=== PATIENT | male | born 1995 | race Two or more races ===

== ENCOUNTER 2018-03-09 23:03 | Emergency (ER) | payer OTHER, SELFPAY ==
[~2018-03-09] VITALS: Ht 165.1 cm; Wt 70.0 kg
[2018-03-09] MEDS ORDERED: LORazepam 0.5MG TABLET ONE (23:27)
[2018-03-09] MEDS ORDERED: LORazepam 0.5MG TABLET PO ONE (23:30)
[2018-03-10 00:03] VITALS: BP 112/56
== END 2018-03-10 00:11 | disposition home or self-care (01) ==
LOC: ED 23:59
DX: R06.00 Dyspnea, unspecified (principal); F41.1 Generalized anxiety disorder; R06.4 Hyperventilation
CPT/HCPCS: 71046; 93005; 99284